=== PATIENT | female | born 1935 | race Caucasian/White ===

== ENCOUNTER 2017-09-15 12:05 | Inpatient (IN) | payer MEDICARE, BC ==
[~2017-09-15] VITALS: Ht 167.6 cm; Wt 61.5 kg
--- NOTE | ~2017-09-15 | DS ---
PATIENT:KIM BOYD :33 MEDICAL RECORD: [id number] DISCHARGE SUMMARY ADMISSION DATE: 09/16/17 DISCHARGE DATE: 09/18/17 DATE OF DISCHARGE: 09/18/2017 from the inpatient hospital. DISCHARGE DIAGNOSES: 1. Nausea and vomiting. 2. Urinary tract infection. 3. Weakness. 4. Hyponatremia. 5. Expressive aphasia. 6. Oropharyngeal dysphagia. 7. Status post cerebrovascular accident. HOSPITAL COURSE: Full H&P is located elsewhere on the chart on this 82-year-old female, who was admitted for evaluation of nausea and vomiting. Labs were consistent with UTI. She was started on antibiotics IV and IV fluids for hydration. She had antiemetics as needed. Electrolytes were managed by protocol. She was followed by speech therapy during this hospital stay and PT for ambulation and strengthening. Her symptoms resolved and she was tolerating a diet with advancement as per speech therapy. It was felt that she would benefit from inpatient rehab after a recent stroke. She was evaluated for rehab admission and accepted to that facility on 09/18/2017. DISCHARGE MEDICATIONS: As per discharge medication reconciliation. DISCHARGE DISPOSITION: The patient is discharged to inpatient rehab for PT and OT for strengthening as well as speech therapy. She will continue her current diet and level of activity and will follow with primary care in the rehab unit. At least 30 minutes was spent in this discharge activity. TRANSINT:[id number] Voice Confirmation ID: [id number] DOCUMENT ID: [id number] Dictated By: TWYLA MURCIA I have interviewed/examined the above patient and agree with these documented findings. 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
[2017-09-15 13:09] LABS: BASOPHILS 0.4 % (0-2); EOSINOPHILS 3.2 % (0-7); HEMATOCRIT 36.7 % (36.0-48.0); IMMATURE GRANULOCYTES 0.2 % (0-5); LYMPHOCYTES 19.8 % (15-50); MCH 29.7 pg (26.0-34.0); MCHC 32.7 g/dL (31.0-37.0); MCV 90.8 fL (80.0-100.0); MEAN PLATELET VOLUME 10.6 fL (7.4-10.4); MONOCYTES 8.4 % (2-11); PLATELET COUNT 214 10x3/uL (130-400); RBC 4.04 10x6/uL (4.00-5.40); RDW 14.8 % (11.5-14.5)
[2017-09-15 13:34] LABS: APPEARANCE HAZY (CLEAR); BACTERIA MANY /hpf (NONE SEEN); BILIRUBIN NEGATIVE (NEGATIVE); COLOR YELLOW (YELLOW); EPITHELIAL CELLS 0-5 /hpf (0-5); GLUCOSE NEGATIVE (NEGATIVE); HYALINE CAST 0-5 /lpf (NONE SEEN); KETONE NEGATIVE (NEGATIVE); MUCUS >1+ /lpf (NONE SEEN); NITRITE NEGATIVE (NEGATIVE); PROTEIN TRACE mg/dL (NEGATIVE); RED CELLS - URINE RARE /hpf (0-5); UROBILINOGEN NORMAL (NORMAL)
[2017-09-15 13:35] LABS: ALBUMIN 3.2 g/dL (3.4-5.0); ANION GAP 9.4 mmol/L (8-16); BILIRUBIN - TOTAL 0.56 mg/dL (0.2-1.3); CARBON DIOXIDE 29.9 mmol/L (21.0-32.0); CREATININE - SERUM 1.1 mg/dL (0.6-1.3); POTASSIUM - SERUM 4.3 mmol/L (3.5-5.1); PROTEIN - SERUM 6.1 g/dL (6.4-8.2)
[2017-09-15] MEDS ORDERED: SYNTHROID50 MCG PO (17:26)
[2017-09-15] MEDS ORDERED: LIPITOR40 MG PO (17:27)
[2017-09-15] MEDS ORDERED: ELIQUIS5 MG PO (17:27)
[2017-09-15] MEDS ORDERED: PACERONE200 MG PO (17:28)
[2017-09-15] MEDS ORDERED: NITROQUICK0.4 MG SL (17:29)
[2017-09-15] MEDS ORDERED: BAYER CHEWABLE81 MG PO (17:30)
[2017-09-15] MEDS ORDERED: ZANTAC150 MG PO (17:30)
[2017-09-15] MEDS ORDERED: PHENERGAN25 M1 PO (17:33)
[2017-09-15] MEDS ORDERED: ULTRAM50 MG PO (17:34)
[2017-09-15] MEDS ORDERED: HYDROCODON-ACE1 EAC6 PO (17:34)
[2017-09-15] MEDS ORDERED: XANAX2 MG PO (17:35)
[2017-09-15 17:36] VITALS: BP 171/49; BMI 22.1
[2017-09-16 04:00] VITALS: BP 91/73
[2017-09-16 05:34] LABS: BASOPHILS 0.3 % (0-2); EOSINOPHILS 3.7 % (0-7); HEMATOCRIT 34.4 % (36.0-48.0); HEMOGLOBIN 11.2 g/dL (12-16); IMMATURE GRANULOCYTES 0.2 % (0-5); LYMPHOCYTES 11.3 % (15-50); MCH 29.9 pg (26.0-34.0); MCHC 32.6 g/dL (31.0-37.0); MCV 91.7 fL (80.0-100.0); MEAN PLATELET VOLUME 10.2 fL (7.4-10.4); MONOCYTES 8.7 % (2-11); NEUTROPHILS 75.8 % (40-80); PLATELET COUNT 211 10x3/uL (130-400); RBC 3.75 10x6/uL (4.00-5.40); WBC 5.7 10x3/uL (4.8-10.8)
[2017-09-16 06:14] LABS: ALBUMIN 2.6 g/dL (3.4-5.0); ANION GAP 8.4 mmol/L (8-16); BILIRUBIN - TOTAL 0.41 mg/dL (0.2-1.3); CALCIUM 8.2 mg/dL (8.5-10.1); CARBON DIOXIDE 28.4 mmol/L (21.0-32.0); POTASSIUM - SERUM 3.8 mmol/L (3.5-5.1); PROTEIN - SERUM 5.4 g/dL (6.4-8.2)
[2017-09-16 08:11] VITALS: BP 161/62
[2017-09-16 12:04] VITALS: Ht 167.6 cm; Wt 61.5 kg
[2017-09-16 12:29] VITALS: BP 148/62
[2017-09-16 16:11] VITALS: BP 140/55
[2017-09-17 00:30] VITALS: BP 165/59
[2017-09-17 04:24] VITALS: BP 142/58
[2017-09-17 04:54] LABS: BASOPHILS 0.2 % (0-2); HEMATOCRIT 34.5 % (36.0-48.0); HEMOGLOBIN 11.1 g/dL (12-16); IMMATURE GRANULOCYTES 0.2 % (0-5); LYMPHOCYTES 16.2 % (15-50); MCH 29.8 pg (26.0-34.0); MCHC 32.2 g/dL (31.0-37.0); MCV 92.5 fL (80.0-100.0); MEAN PLATELET VOLUME 10.5 fL (7.4-10.4); MONOCYTES 8.8 % (2-11); NEUTROPHILS 70.6 % (40-80); PLATELET COUNT 220 10x3/uL (130-400); RBC 3.73 10x6/uL (4.00-5.40); RDW 15.1 % (11.5-14.5); WBC 4.5 10x3/uL (4.8-10.8)
[2017-09-17 05:20] LABS: ALBUMIN 2.5 g/dL (3.4-5.0); ANION GAP 8.4 mmol/L (8-16); BILIRUBIN - TOTAL 0.35 mg/dL (0.2-1.3); CALCIUM 8.1 mg/dL (8.5-10.1); CARBON DIOXIDE 28.1 mmol/L (21.0-32.0); CREATININE - SERUM 0.9 mg/dL (0.6-1.3); POTASSIUM - SERUM 3.5 mmol/L (3.5-5.1); PROTEIN - SERUM 5.4 g/dL (6.4-8.2)
[2017-09-17 07:56] VITALS: BP 163/72
[2017-09-17 12:02] VITALS: BP 164/61
[2017-09-17 16:04] VITALS: BP 145/57
[2017-09-17 20:51] VITALS: BP 119/59
[2017-09-18 00:29] VITALS: BP 120/46
[2017-09-18 04:17] VITALS: BP 137/52
[2017-09-18 06:28] LABS: BASOPHILS 0.2 % (0-2); EOSINOPHILS 2.6 % (0-7); HEMATOCRIT 33.5 % (36.0-48.0); HEMOGLOBIN 10.9 g/dL (12-16); LYMPHOCYTES 14.7 % (15-50); MCH 29.9 pg (26.0-34.0); MCHC 32.5 g/dL (31.0-37.0); MCV 91.8 fL (80.0-100.0); MEAN PLATELET VOLUME 10.1 fL (7.4-10.4); MONOCYTES 8.3 % (2-11); NEUTROPHILS 74.2 % (40-80); PLATELET COUNT 224 10x3/uL (130-400); RBC 3.65 10x6/uL (4.00-5.40); RDW 15.1 % (11.5-14.5); WBC 4.2 10x3/uL (4.8-10.8)
[2017-09-18 07:03] LABS: ALBUMIN 2.5 g/dL (3.4-5.0); ANION GAP 8.6 mmol/L (8-16); BILIRUBIN - TOTAL 0.39 mg/dL (0.2-1.3); CALCIUM 8.5 mg/dL (8.5-10.1); CARBON DIOXIDE 28.8 mmol/L (21.0-32.0); CREATININE - SERUM 0.9 mg/dL (0.6-1.3); POTASSIUM - SERUM 3.4 mmol/L (3.5-5.1); PROTEIN - SERUM 5.4 g/dL (6.4-8.2)
[2017-09-18 08:00] VITALS: BP 162/56
[2017-09-18] MEDS ORDERED: [UNRECOGNIZED DRUG - OTHER] IV (10:32)
[2017-09-18] MEDS ORDERED: ROCEPHIN IV (10:32)
[2017-09-18 12:00] VITALS: BP 177/58
[2017-09-18 16:00] VITALS: BP 162/68
== END 2017-09-18 20:15 | DRG 690 ==
LOC: D.ER 12:05 → OBSVTIME 14:33 → D.M2 14:33
PROVIDERS: Emergency Medicine; Family Medicine
DX: N39.0 Urinary tract infection, site not specified (principal); E86.0 Dehydration; G72.89 Other specified myopathies; Z86.73 Personal history of transient ischemic attack (TIA), and cerebral infarction without residual deficits

== ENCOUNTER 2017-09-18 22:00 | Inpatient (IN) | payer MEDICARE, BC ==
[~2017-09-18] VITALS: Ht 167.6 cm; Wt 61.7 kg
[~2017-09-18 22:00] MED LIST: BAYER CHEWABLE81 MG PO; ELIQUIS5 MG PO; HYDROCODON-ACE1 EAC6 PO; LIPITOR40 MG PO; NITROQUICK0.4 MG SL; PACERONE200 MG PO; PHENERGAN25 M1 PO; ROCEPHIN IV; SYNTHROID50 MCG PO; ULTRAM50 MG PO; XANAX2 MG PO; ZANTAC150 MG PO; [UNRECOGNIZED DRUG - OTHER] IV
[2017-09-18 23:45] VITALS: BP 155/51; BMI 22.0
[2017-09-19 08:27] VITALS: BP 167/52
[2017-09-19 09:21] LABS: BASOPHILS 0.1 % (0-2); EOSINOPHILS 0.9 % (0-7); HEMOGLOBIN 11.1 g/dL (12-16); IMMATURE GRANULOCYTES 0.1 % (0-5); LYMPHOCYTES 4.1 % (15-50); MCHC 32.6 g/dL (31.0-37.0); MCV 91.9 fL (80.0-100.0); MONOCYTES 1.4 % (2-11); NEUTROPHILS 93.4 % (40-80); PLATELET COUNT 238 10x3/uL (130-400); RDW 15.1 % (11.5-14.5); WBC 7.8 10x3/uL (4.8-10.8)
[2017-09-19 09:42] LABS: ANION GAP 10.2 mmol/L (8-16); CALCIUM 8.4 mg/dL (8.5-10.1); CARBON DIOXIDE 26.3 mmol/L (21.0-32.0); POTASSIUM - SERUM 3.5 mmol/L (3.5-5.1)
[2017-09-19 13:19] VITALS: Ht 167.6 cm; Wt 61.7 kg
[2017-09-19 19:45] VITALS: BP 105/40
[2017-09-20 08:04] VITALS: BP 149/57
[2017-09-20 19:45] VITALS: BP 148/54
[2017-09-21 08:00] VITALS: BP 148/45
[2017-09-21 19:34] VITALS: BP 154/62
[2017-09-22 08:08] LABS: BASOPHILS 0.5 % (0-2); EOSINOPHILS 6.6 % (0-7); HEMATOCRIT 34.8 % (36.0-48.0); HEMOGLOBIN 11.1 g/dL (12-16); LYMPHOCYTES 20.3 % (15-50); MCH 29.8 pg (26.0-34.0); MCHC 31.9 g/dL (31.0-37.0); MCV 93.3 fL (80.0-100.0); MEAN PLATELET VOLUME 10.4 fL (7.4-10.4); MONOCYTES 13.2 % (2-11); NEUTROPHILS 59.4 % (40-80); PLATELET COUNT 217 10x3/uL (130-400); RBC 3.73 10x6/uL (4.00-5.40); RDW 15.3 % (11.5-14.5); WBC 3.6 10x3/uL (4.8-10.8)
[2017-09-22 08:36] VITALS: BP 105/51
[2017-09-22 22:00] VITALS: BP 162/57
[2017-09-23 07:54] VITALS: BP 155/62
[2017-09-23 20:00] VITALS: BP 135/59
[2017-09-24 08:29] VITALS: BP 138/49
[2017-09-24 19:45] VITALS: BP 98/57
[2017-09-25 07:00] LABS: BASOPHILS 0.3 % (0-2); EOSINOPHILS 2.5 % (0-7); HEMATOCRIT 37.7 % (36.0-48.0); IMMATURE GRANULOCYTES 0.2 % (0-5); LYMPHOCYTES 16.6 % (15-50); MCH 29.5 pg (26.0-34.0); MCHC 31.8 g/dL (31.0-37.0); MCV 92.6 fL (80.0-100.0); MONOCYTES 11.8 % (2-11); NEUTROPHILS 68.6 % (40-80); PLATELET COUNT 255 10x3/uL (130-400); RBC 4.07 10x6/uL (4.00-5.40); WBC 6.1 10x3/uL (4.8-10.8)
[2017-09-25 07:14] LABS: ANION GAP 11.4 mmol/L (8-16); CALCIUM 9.1 mg/dL (8.5-10.1); CARBON DIOXIDE 28.6 mmol/L (21.0-32.0); CREATININE - SERUM 0.9 mg/dL (0.6-1.3)
[2017-09-25 08:00] VITALS: BP 125/65
[2017-09-25 19:00] VITALS: BP 113/51
[2017-09-26 08:16] VITALS: BP 175/72
[2017-09-26 19:00] VITALS: BP 140/66
[2017-09-27 08:23] VITALS: BP 166/60
[2017-09-27 19:00] VITALS: BP 182/71
[2017-09-28 08:00] VITALS: BP 151/46
[2017-09-29 01:12] VITALS: BP 99/51
[2017-09-29 08:00] VITALS: BP 143/58
[2017-09-30 08:16] VITALS: BP 154/55
[2017-10-01 08:00] VITALS: BP 130/60
[2017-10-01 08:12] LABS: HEMATOCRIT 32.9 % (36.0-48.0); HEMOGLOBIN 10.6 g/dL (12-16); LYMPHOCYTES 17.4 % (15-50); MCH 29.7 pg (26.0-34.0); MCHC 32.2 g/dL (31.0-37.0); MCV 92.2 fL (80.0-100.0); MEAN PLATELET VOLUME 10.9 fL (7.4-10.4); PLATELET COUNT 225 10x3/uL (130-400); RBC 3.57 10x6/uL (4.00-5.40); RDW 14.7 % (11.5-14.5)
[2017-10-01 08:23] LABS: ANION GAP 10.6 mmol/L (8-16); CALCIUM 8.8 mg/dL (8.5-10.1); CARBON DIOXIDE 30.4 mmol/L (21.0-32.0); CREATININE - SERUM 0.9 mg/dL (0.6-1.3)
[2017-10-01] MEDS ORDERED: MEGACE400 MG/10 PO (10:27)
[2017-10-01 19:41] VITALS: BP 115/67
[2017-10-02 08:00] VITALS: BP 130/57
== END 2017-10-02 11:00 | DRG 92 ==
LOC: D.REHAB 22:00
PROVIDERS: Emergency Medicine
DX: G72.89 Other specified myopathies (principal); N39.0 Urinary tract infection, site not specified; R13.0 Aphagia; R53.1 Weakness; R13.12 Dysphagia, oropharyngeal phase; H54.3 Unqualified visual loss, both eyes

== ENCOUNTER 2017-12-07 17:30 | Inpatient (IN) | payer MEDICARE, BC ==
[~2017-12-07] VITALS: Ht 167.6 cm; Wt 54.7 kg
[~2017-12-07 17:30] MED LIST changes: +MEGACE400 MG/10 PO
[2017-12-07 18:46] LABS: APPEARANCE CLEAR (CLEAR); BILIRUBIN NEGATIVE (NEGATIVE); COLOR YELLOW (YELLOW); GLUCOSE NEGATIVE (NEGATIVE); KETONE NEGATIVE (NEGATIVE); NITRITE NEGATIVE (NEGATIVE); PROTEIN NEGATIVE (NEGATIVE); SPECIFIC GRAVITY 1.015 (1.005-1.020); UROBILINOGEN NORMAL (NORMAL)
[2017-12-07 20:07] LABS: BASOPHILS 0.2 % (0-2); EOSINOPHILS 1.9 % (0-7); HEMATOCRIT 33.2 % (36.0-48.0); HEMOGLOBIN 11.2 g/dL (12-16); IMMATURE GRANULOCYTES 0.2 % (0-5); LYMPHOCYTES 11.3 % (15-50); MCH 30.5 pg (26.0-34.0); MCHC 33.7 g/dL (31.0-37.0); MCV 90.5 fL (80.0-100.0); MEAN PLATELET VOLUME 9.4 fL (7.4-10.4); MONOCYTES 8.9 % (2-11); NEUTROPHILS 77.5 % (40-80); PLATELET COUNT 258 10x3/uL (130-400); RBC 3.67 10x6/uL (4.00-5.40); RDW 15.2 % (11.5-14.5); WBC 5.2 10x3/uL (4.8-10.8)
[2017-12-07 20:32] LABS: ALBUMIN 2.8 g/dL (3.4-5.0); ANION GAP 12.3 mmol/L (8-16); BILIRUBIN - TOTAL 0.83 mg/dL (0.2-1.3); CALCIUM 8.3 mg/dL (8.5-10.1); CARBON DIOXIDE 23.1 mmol/L (21.0-32.0); CREATININE - SERUM 1.1 mg/dL (0.6-1.3); POTASSIUM - SERUM 4.4 mmol/L (3.5-5.1); PROTEIN - SERUM 6.6 g/dL (6.4-8.2)
[2017-12-08 16:25] VITALS: BP 157/55; Ht 167.6 cm; Wt 54.7 kg
[2017-12-08 18:47] VITALS: BP 157/55
[2017-12-08 20:00] VITALS: BP 155/62
[2017-12-09] VITALS (7 sets, daily range): BP systolic 102–142; BP diastolic 45–108
[2017-12-09 07:08] LABS: BASOPHILS 0 % (0-2); EOSINOPHILS 0.3 % (0-7); HEMATOCRIT 32.5 % (36.0-48.0); HEMOGLOBIN 10.7 g/dL (12-16); IMMATURE GRANULOCYTES 0.1 % (0-5); LYMPHOCYTES 11.8 % (15-50); MCH 30.3 pg (26.0-34.0); MCHC 32.9 g/dL (31.0-37.0); MCV 92.1 fL (80.0-100.0); MEAN PLATELET VOLUME 10.2 fL (7.4-10.4); MONOCYTES 7.6 % (2-11); NEUTROPHILS 80.2 % (40-80); PLATELET COUNT 267 10x3/uL (130-400); RBC 3.53 10x6/uL (4.00-5.40); RDW 15.2 % (11.5-14.5)
[2017-12-09 07:13] LABS: WBC 6.9 10x3/uL (4.8-10.8)
[2017-12-09 07:24] LABS: ALBUMIN 2.3 g/dL (3.4-5.0); ANION GAP 15.4 mmol/L (8-16); BILIRUBIN - TOTAL 0.7 mg/dL (0.2-1.3); CALCIUM 8.3 mg/dL (8.5-10.1); CARBON DIOXIDE 18.1 mmol/L (21.0-32.0); POTASSIUM - SERUM 4.5 mmol/L (3.5-5.1)
[2017-12-10 02:33] VITALS: BP 159/54
[2017-12-10 06:02] VITALS: BP 136/71
[2017-12-10 06:06] LABS: BASOPHILS 0 % (0-2); EOSINOPHILS 0.8 % (0-7); HEMATOCRIT 31.9 % (36.0-48.0); HEMOGLOBIN 10.6 g/dL (12-16); IMMATURE GRANULOCYTES 0.2 % (0-5); LYMPHOCYTES 12.5 % (15-50); MCH 30.1 pg (26.0-34.0); MCHC 33.2 g/dL (31.0-37.0); MCV 90.6 fL (80.0-100.0); MEAN PLATELET VOLUME 9.9 fL (7.4-10.4); MONOCYTES 10.4 % (2-11); NEUTROPHILS 76.1 % (40-80); PLATELET COUNT 274 10x3/uL (130-400); RBC 3.52 10x6/uL (4.00-5.40); RDW 15.1 % (11.5-14.5); WBC 5.2 10x3/uL (4.8-10.8)
[2017-12-10 06:22] LABS: ALBUMIN 2.5 g/dL (3.4-5.0); BILIRUBIN - TOTAL 0.61 mg/dL (0.2-1.3); CALCIUM 8.1 mg/dL (8.5-10.1); CREATININE - SERUM 0.9 mg/dL (0.6-1.3); POTASSIUM - SERUM 4.7 mmol/L (3.5-5.1); PROTEIN - SERUM 5.6 g/dL (6.4-8.2)
[2017-12-10 06:25] LABS: ANION GAP 13.8 mmol/L (8-16); CARBON DIOXIDE 22.9 mmol/L (21.0-32.0)
[2017-12-10 08:14] VITALS: BP 141/82
[2017-12-10 11:29] VITALS: BP 136/86
[2017-12-10 15:16] VITALS: BP 109/79
[2017-12-10 22:47] VITALS: BP 144/70
[2017-12-11 05:04] LABS: BASOPHILS 0.2 % (0-2); EOSINOPHILS 1.6 % (0-7); HEMATOCRIT 33.7 % (36.0-48.0); HEMOGLOBIN 11.2 g/dL (12-16); IMMATURE GRANULOCYTES 0.2 % (0-5); LYMPHOCYTES 12.8 % (15-50); MCHC 33.2 g/dL (31.0-37.0); MCV 90.3 fL (80.0-100.0); MEAN PLATELET VOLUME 9.5 fL (7.4-10.4); MONOCYTES 9.9 % (2-11); NEUTROPHILS 75.3 % (40-80); PLATELET COUNT 302 10x3/uL (130-400); RBC 3.73 10x6/uL (4.00-5.40); RDW 14.9 % (11.5-14.5); WBC 5.5 10x3/uL (4.8-10.8)
[2017-12-11 05:15] LABS: ALBUMIN 2.5 g/dL (3.4-5.0); BILIRUBIN - TOTAL 0.82 mg/dL (0.2-1.3); CALCIUM 8.2 mg/dL (8.5-10.1); CARBON DIOXIDE 22.5 mmol/L (21.0-32.0); POTASSIUM - SERUM 4.5 mmol/L (3.5-5.1)
[2017-12-11 06:39] VITALS: BP 138/51
[2017-12-11 08:27] VITALS: BP 84/54
[2017-12-11 10:58] VITALS: BP 96/64
[2017-12-11 14:46] VITALS: BP 103/77
[2017-12-11 19:00] VITALS: BP 136/52
[2017-12-12 04:00] VITALS: BP 141/62
[2017-12-12 05:40] LABS: BASOPHILS 0.2 % (0-2); EOSINOPHILS 1.7 % (0-7); HEMATOCRIT 32.5 % (36.0-48.0); IMMATURE GRANULOCYTES 0.2 % (0-5); LYMPHOCYTES 13.3 % (15-50); MCH 30.4 pg (26.0-34.0); MCHC 33.8 g/dL (31.0-37.0); MCV 89.8 fL (80.0-100.0); MEAN PLATELET VOLUME 9.8 fL (7.4-10.4); MONOCYTES 9.5 % (2-11); NEUTROPHILS 75.1 % (40-80); PLATELET COUNT 311 10x3/uL (130-400); RBC 3.62 10x6/uL (4.00-5.40); WBC 4.8 10x3/uL (4.8-10.8)
[2017-12-12 06:06] LABS: ALBUMIN 2.5 g/dL (3.4-5.0); ANION GAP 10.9 mmol/L (8-16); BILIRUBIN - TOTAL 0.67 mg/dL (0.2-1.3); CALCIUM 8.3 mg/dL (8.5-10.1); CARBON DIOXIDE 24.1 mmol/L (21.0-32.0); CREATININE - SERUM 0.9 mg/dL (0.6-1.3); PROTEIN - SERUM 5.9 g/dL (6.4-8.2)
[2017-12-12 09:03] VITALS: BP 139/56
[2017-12-12 11:55] VITALS: BP 117/57
[2017-12-12 16:00] VITALS: BP 121/68
[2017-12-12 21:44] VITALS: BP 134/57
[2017-12-13 00:30] VITALS: BP 139/52
[2017-12-13 04:30] VITALS: BP 129/57
[2017-12-13 05:18] LABS: BASOPHILS 0.2 % (0-2); EOSINOPHILS 1.8 % (0-7); HEMATOCRIT 31.9 % (36.0-48.0); HEMOGLOBIN 10.6 g/dL (12-16); IMMATURE GRANULOCYTES 0.2 % (0-5); LYMPHOCYTES 12.6 % (15-50); MCH 29.9 pg (26.0-34.0); MCHC 33.2 g/dL (31.0-37.0); MCV 89.9 fL (80.0-100.0); MEAN PLATELET VOLUME 9.7 fL (7.4-10.4); MONOCYTES 12.5 % (2-11); NEUTROPHILS 72.7 % (40-80); PLATELET COUNT 291 10x3/uL (130-400); RBC 3.55 10x6/uL (4.00-5.40); RDW 14.8 % (11.5-14.5); WBC 5.5 10x3/uL (4.8-10.8)
[2017-12-13 05:31] LABS: ALBUMIN 2.4 g/dL (3.4-5.0); ANION GAP 11.4 mmol/L (8-16); BILIRUBIN - TOTAL 0.6 mg/dL (0.2-1.3); CALCIUM 8.1 mg/dL (8.5-10.1); CARBON DIOXIDE 24.3 mmol/L (21.0-32.0); PROTEIN - SERUM 5.6 g/dL (6.4-8.2)
[2017-12-13 05:40] LABS: POTASSIUM - SERUM 4.7 mmol/L (3.5-5.1)
[2017-12-13 09:21] VITALS: BP 106/51
[2017-12-13 13:50] VITALS: BP 112/55
[2017-12-13 16:59] VITALS: BP 130/58
== END 2017-12-13 19:45 | disposition home or self-care (01) | DRG 543 ==
LOC: D.ER 17:30 → D.M2 21:48 → D.EDHOLD 21:48 → D.M2 12-08 14:32 → D.SDCHOLD 12-11 16:39 → D.M2 12-11 16:40
PROVIDERS: Family Medicine; Family Medicine Adult Medicine; Physician Assistant Medical
DX: M48.54XA Collapsed vertebra, not elsewhere classified, thoracic region, initial encounter for fracture (principal); E87.1 Hypo-osmolality and hyponatremia; M48.061 Spinal stenosis, lumbar region without neurogenic claudication; Z86.73 Personal history of transient ischemic attack (TIA), and cerebral infarction without residual deficits; W19.XXXA Unspecified fall, initial encounter

== ENCOUNTER 2018-01-18 07:53 | Emergency (ER) | payer MEDICARE, BC ==
[2017-12-08 16:25] VITALS: BMI 18.1
== END 2018-01-18 09:51 | disposition home or self-care (01) ==
LOC: D.ER 07:53
DX: S40.012A Contusion of left shoulder, initial encounter (principal); W05.0XXA Fall from non-moving wheelchair, initial encounter; Y93.89 Activity, other specified; Y92.129 Unspecified place in nursing home as the place of occurrence of the external cause; S00.83XA Contusion of other part of head, initial encounter

== ENCOUNTER 2018-04-14 05:05 | Emergency (ER) | payer MEDICARE, BC ==
[~2018-04-14] VITALS: Ht 167.6 cm; Wt 72.7 kg
[2018-04-14] MEDS ORDERED: ASPIRIN325 MG PO (05:16)
[2018-04-14] MEDS ORDERED: COLACE100 MG (05:17)
[2018-04-14] MEDS ORDERED: FUROSEMIDE20 MG PO (05:17)
[2018-04-14] MEDS ORDERED: TIROSINT50 MCG PO (05:17)
[2018-04-14] MEDS ORDERED: FOLBIC RF TABL1 EACH PO (05:17)
[2018-04-14] MEDS ORDERED: PACERONE200 MG PO (05:17)
[2018-04-14] MEDS ORDERED: ELIQUIS5 MG PO (05:18)
[2018-04-14] MEDS ORDERED: MEGACE40 MG (05:18)
[2018-04-14] MEDS ORDERED: ZANTAC150 MG (05:18)
[2018-04-14] MEDS ORDERED: XANAX1 MG (05:19)
[2018-04-14] MEDS ORDERED: CLARITIN 10 MG10 MG (05:19)
[2018-04-14] MEDS ORDERED: ULTRAM50 MG (05:20)
[2018-04-14] MEDS ORDERED: HYDROCODON-ACE1 EAC7 (05:20)
[2018-04-14] MEDS ORDERED: NITROSTAT0.4 MG (05:20)
[2018-04-14] MEDS ORDERED: PHENADOZ25 MG/SUPP (05:20)
[2018-04-14 05:44] LABS: BASOPHILS 0.3 % (0-2); HEMOGLOBIN 11.8 g/dL (12-16); IMMATURE GRANULOCYTES 0.1 % (0-5); LYMPHOCYTES 16.2 % (15-50); MCH 30.7 pg (26.0-34.0); MCHC 33.7 g/dL (31.0-37.0); MCV 91.1 fL (80.0-100.0); MEAN PLATELET VOLUME 9.7 fL (7.4-10.4); MONOCYTES 8.1 % (2-11); NEUTROPHILS 73.3 % (40-80); PLATELET COUNT 248 10x3/uL (130-400); RBC 3.84 10x6/uL (4.00-5.40); RDW 13.7 % (11.5-14.5)
[2018-04-14 05:45] VITALS: Ht 167.6 cm; Wt 72.7 kg
[2018-04-14 05:54] LABS: INR 1.16 (0.85-1.17); PROTIME 14.4 SECONDS (11.6-15.0)
[2018-04-14 05:55] LABS: APTT 29.2 SECONDS (22.8-39.4)
[2018-04-14 06:02] LABS: ALBUMIN 2.5 g/dL (3.4-5.0); ALKALINE PHOSPHATASE 142 U/L (46-116); ALT (SGPT) 30 U/L (10-68); BILIRUBIN - TOTAL 0.48 mg/dL (0.2-1.3); CALC OSMOLALITY 272 mosm/kg (275-300); CHLORIDE - SERUM 102 mmol/L (98-107); CREATININE - SERUM 1.2 mg/dL (0.6-1.3); GLUCOSE 84 mg/dL (74-106); POTASSIUM - SERUM 3.5 mmol/L (3.5-5.1); PROTEIN - SERUM 5.8 g/dL (6.4-8.2); SODIUM 136 mmol/L (136-145); UREA NITROGEN 17 mg/dL (7-18); eGFR NON AFRICAN AMERICAN 45 mL/min (90-120)
[2018-04-14 06:06] LABS: APPEARANCE CLEAR (CLEAR); BILIRUBIN NEGATIVE (NEGATIVE); COLOR YELLOW (YELLOW); GLUCOSE NEGATIVE (NEGATIVE); KETONE NEGATIVE (NEGATIVE); NITRITE NEGATIVE (NEGATIVE); PROTEIN NEGATIVE (NEGATIVE); SPECIFIC GRAVITY 1.015 (1.005-1.020)
[2018-04-14 06:07] LABS: BACTERIA FEW /hpf (NONE SEEN); EPITHELIAL CELLS 0-5 /hpf (0-5); HYALINE CAST 0-5 /lpf (NONE SEEN); MUCUS >1+ /lpf (NONE SEEN); RED CELLS - URINE 0-5 /hpf (0-5); WHITE CELLS - URINE 0-5 /hpf (0-5)
[2018-04-14 06:13] LABS: CKMB 0.4 U/L (0.0-3.6); CREATINE KINASE 31 UL (21-215)
[2018-04-14 06:18] LABS: TROPONIN-I < 0.017 ng/mL (0.000-0.060)
[2018-04-14 08:16] VITALS: BP 151/49
== END 2018-04-14 08:17 ==
LOC: D.ER 05:05
PROVIDERS: Family Medicine
DX: M79.1 Myalgia (principal); S00.83XA Contusion of other part of head, initial encounter; W19.XXXA Unspecified fall, initial encounter; Y93.89 Activity, other specified; Y92.122 Bedroom in nursing home as the place of occurrence of the external cause; Z86.73 Personal history of transient ischemic attack (TIA), and cerebral infarction without residual deficits; H54.7 Unspecified visual loss